=== PATIENT | female | born 1975 | race Caucasian/White ===

== ENCOUNTER 2021-07-25 14:23 | Outpatient (CLI) | payer OTHER | END 2021-07-25 14:24 | disposition home or self-care (01) | LOC: CSHULT 14:23 | PROVIDERS: ATTEND Otolaryngology Plastic Surgery within the Head & Neck | DX: E04.1 Nontoxic single thyroid nodule (principal); E04.2 Nontoxic multinodular goiter | CPT/HCPCS: 76536 ==